=== PATIENT | male | born 1960 | race Caucasian/White ===

== ENCOUNTER 2016-11-27 06:44 | Observation (INO) | payer BC ==
[~2016-11-27] VITALS: Ht 175.3 cm; Wt 75.7 kg
[2016-11-27] VITALS (13 sets, daily range): BP systolic 110–142; BP diastolic 59–89
[~2016-11-27 06:44] MED LIST: EFFEXOR PO; EZET1TAB43 PO; LEVO500T69 PO; MTF500T PO; [UNRECOGNIZED DRUG - OTHER]
[2016-11-27] MEDS ORDERED: RX-NITROGLYCERIN 0.4 MG TAB BTL 25'S SL ONE (06:49)
--- OUTSIDE RECORDS SUMMARY | 2016-11-27 06:52 | XMS REPORT | Clinical Summary ---
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 HYPERCHOLESTEROLEMIA 272.0 Active Rhonda Jj PURE HYPERCHOLESTEROLEMIA MACULAR DEGENERATION, 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 Rhonda Jj MACULAR DEGENERATION (SENILE) OF RETINA, UNSPECIFIED CORONARY ARTERY DISEASE 414.00 Active Rhonda Jj 12/06/04 bypass DEPRESSION 311 Active Rhonda Jj DEPRESSIVE DISORDER, NOT ELSEWHERE CLASSIFIED VITAMIN B12 DEFICIENCY 266.2 Active Rhonda Jj OTHER B-COMPLEX DEFICIENCIES DIABETES MELLITUS, NONINSULIN DEPENDENT (NIDDM) 250.02 Active Rhonda Jj DIABETES MELLITUS WITHOUT MENTION OF COMPLICATION, TYPE II OR UNSPECIFIED TYPE, UNCONTROLLED VITAMIN D DEFICIENCY 268.9 Active Rhonda Jj TACHYCARDIA 785.0 Active Rhonda Jj UNSPECIFIED TACHYCARDIA HEALTH SCREENING V70.0 Active Rhonda Jj ROUTINE GENERAL MEDICAL EXAMINATION AT [facility] Medication List Medication Instructions Start Date Stop Date Generic Name NDC Status Provider Patient Instruction ECOTRIN 325 MG TBEC 1 PO QD (Dr. Ramirez) ASPIRIN 17013130321 Active Ann Meier VYTORIN 10-20 MG TABS 1 po daily EZETIMIBE-SIMVASTATIN 37183702213 Active Rhonda Jj EFFEXOR XR 150 MG CP24 1 PO daily VENLAFAXINE HCL 49776891393 Active Rhonda Jj XANAX 0.25 MG TABS 1 PO Q6hrs prn ALPRAZOLAM 93743784928 Active Rhonda Jj GLUCOPHAGE XR 500 MG TB24 2 PO daily METFORMIN HCL 98666153585 Active Rhonda Jj BACTROBAN/KENALOG/LIDOCAINE apply BID to affected areas BACTROBAN/KENALOG/LIDOCAINE Active Betty Mo VITAMIN D (ERGOCALCIFEROL) 82271 UNIT CAPS 1 PO Weekly ERGOCALCIFEROL 19528505220 Active Rhonda Jj GLYBURIDE 1.25 MG TABS 1 PO daily GLYBURIDE 62264616219 Active Rhonda Jj VITAMIN B-12 1000 MCG TABS 1 PO daily CYANOCOBALAMIN 79085625628 Active Rhonda Jj JANUVIA 100 MG TABS 1 PO daily SITAGLIPTIN PHOSPHATE 81893111830 Active Rhonda Jj Vital Signs Date Name Value Unit Range Description blood pressure, diastolic 80 mm[Hg] BP vieira blood pressure, systolic 130 mm[Hg] BP sys pulse rate E&M 120 /min Heart rate respiratory rate E&M 14 /min Resp rate temperature E&M 98.6 [degF] Body temperature weight E&M 198 [lb_av] Weight Measured blood pressure, diastolic 80 mm[Hg] BP vieira blood pressure, systolic 130 mm[Hg] BP sys pulse rate E&M 120 /min Heart rate respiratory rate E&M 14 /min Resp rate temperature E&M 98.6 [degF] Body temperature weight E&M 183 [lb_av] Weight Measured Diagnostic Results Date Name Value Unit Range Description Clinical Lists Update: CBC,CMP,Chol,Trig,HgA1c - Chemistry Estimated Glomerular Filtration Rate (calc) 115 mL/min/1.73m2 albumin, serum 4.4 g/dL alkaline phosphatase, serum 78 U/L urea nitrogen, blood 15 mg/dL calcium, serum 9.2 mg/dL chloride, serum 105 mmol/L cholesterol, serum 149 mg/dL carbon dioxide, venous blood 25.0 mmol/L creatinine, serum 0.8 mg/dL hemoglobin A1C, blood, as % of total hemoglobin 8.1 % potassium, serum 4.3 mmol/L protein, total, serum 6.9 g/dL aspartate aminotransferase (SGOT), serum 18 U/L alanine aminotransferase (SGPT), serum 33 U/L bilirubin, serum, total 0.7 mg/dL triglyceride, serum, fasting 164 mg/dL sodium, serum 138 mmol/L anion gap, serum 12 glucose, plasma fasting 159 mg/dL Clinical Lists Update: CBC,CMP,Chol,Trig,HgA1c - Hematology mean corpuscular volume, RBC 87 fL hemoglobin, blood 14.3 g/dL platelet count 162 10*3/mm3 red blood cell distribution width 14.4 % erythrocyte (RBC) count 4.98 10*6/mm3 leukocyte count, blood 6.4 10*3/mm3 hematocrit, blood 44 % Clinical Lists Update: CMP,FLP,TSH - Chemistry potassium, serum 3.9 mmol/L protein, total, serum 7.1 g/dL urea nitrogen, blood 14 mg/dL aspartate aminotransferase (SGOT), serum 15 U/L alanine aminotransferase (SGPT), serum 46 U/L calcium, serum 9.0 mg/dL bilirubin, serum, total 0.4 mg/dL triglyceride, serum, fasting 219 mg/dL chloride, serum 101 mmol/L sodium, serum 133 mmol/L very low density lipoproteins 44 mg/dL cholesterol, serum 139 mg/dL glucose, plasma fasting 217 mg/dL carbon dioxide, venous blood 26 mmol/L albumin, serum 3.9 g/dL creatinine, serum 0.8 mg/dL HDL cholesterol, serum 30 mg/dL thyroid stimulating hormone, serum 0.72 u[iU]/mL Estimated Glomerular Filtration Rate (calc) >60 mL/min/1.73m2 alkaline phosphatase, serum 124 U/L LDL cholesterol, serum 65 mg/dL Clinical Lists Update: HgA1c - Chemistry hemoglobin A1C, blood, as % of total hemoglobin 8.4 %
[2016-11-27] MEDS ORDERED: D50KC (06:53)
[2016-11-27] MEDS ORDERED: METF500T8 (06:53)
[2016-11-27] MEDS ORDERED: VENL150C98 PO (06:53)
[2016-11-27] MEDS ORDERED: CYAN10007 (06:53)
[2016-11-27] MEDS ORDERED: KETOROLAC 30 MG/ML VIAL IVP ONE (07:00)
--- NOTE | 2016-11-27 07:07 | ED Chest Pain ---
General Chief Complaint: Chest Pain Stated Complaint: CHEST PAIN Nursing Triage Note: c/o chest pain since saturday with nausea and SOA. Pain radiates to L arm, neck and L jaw. Patient reports he was at work this morning noticed that the pain was worse with lifting and was getting winded easily. Patient reports he took a 325mg aspirin, [employer]. Nursing Sepsis Screen: No Definite Risk Source: patient Exam Limitations: no limitations History of Present Illness Time seen by provider: 06:49 Initial Comments This 55-year-old gentleman presents to the emergency room with pain across the central chest described as a tight pulling and sometimes burning sensation. It is better with sleep and rest and worse with exertion. He presents to the emergency room on the third day of this pain because of worsening symptoms while at work this morning. 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 He is specifically states the pulling sensation in his chest is worse when lifting glass at work. He has a showed associated shortness of air and nausea. Pain sometimes radiates to the right lower chest, left arm, and base of neck. He also sometimes has numbness in the left face. He took aspirin 325 mg this morning. He rates his pain as 8/10. The pain is worsened with palpation. He has a history of CABG 12 years ago. His last stress test at this facility was in 2010 and showed no significant ischemia. Ejection fraction was normal. Allergies and Home Medications Allergies Coded Allergies: No Known Drug Allergies (Unverified , 10/16/11) Home Medications Cyanocobalamin (Vitamin B-12) 1,000 Mcg Tablet.er #90 (Reported) Ergocalciferol (Vitamin D2) 50,000 Unit Capsule #12 (Reported) Metformin HCl 500 Mg Tab.er.24h #180 (Reported) Venlafaxine HCl 150 Mg Cap.er.24h #90 (Reported) Review of Systems Constitutional: no symptoms reported EENTM: No Symptoms Reported Respiratory: See HPI Cardiovascular: See HPI Gastrointestinal: See HPI Genitourinary: No Symptoms Reported Musculoskeletal: see HPI Skin: no symptoms reported Psychiatric/Neurological: See HPI Endocrine: No Symptoms Reported Past Hsapkff-Huovlc-Kuaytl Hx Patient Social History Alcohol Use: Denies Use Recreational Drug Use: No Smoking Status: Never a Smoker Recent Foreign Travel: No Contact w/Someone Who Travel: No Recent Infectious Disease Expo: No Recent Hopitalizations: Yes Physical Abuse Screen: No Sexual Abuse: No Surgeries HX Surgeries: Yes Surgeries: CABG Respiratory Hx Respiratory Disorders: No Cardiovascular Hx Cardiac Disorders: Yes (CODE BLUE cardiac arrest) Cardiac Disorders: Coronary Artery Disease Neurological Hx Neurological Disorders: No Reproductive System Hx Reproductive Disorders: No Genitourinary Hx Genitourinary Disorders: No Gastrointestinal Hx Gastrointestinal Disorders: No Musculoskeletal Hx Musculoskeletal Disorders: No Endocrine Hx Endocrine Disorders: Yes Endocrine Disorders: Diabetes, Non-Insulin dep HEENT HX ENT Disorders: No Psychosocial Hx Psychiatric Problems: No Blood Transfusions Hx Blood Disorders: No Physical Exam Vital Signs Vital Sign - Last 12Hours 11/27/16 11/27/16 06:49 07:04 Temp 98.4 Pulse 92 Resp 11 B/P 148/90 Pulse Ox 97 O2 Delivery Room Air O2 Flow Rate 2 Capillary Refill : Less Than 3 Seconds General Appearance: No Apparent Distress WD/WN HEENT: PERRL/EOMI Normal ENT Inspection Neck: Normal Inspection Respiratory: Lungs Clear Normal Breath Sounds No Accessory Muscle Use No Respiratory Distress Other (anterior chest wall tender to palpation) Cardiovascular: Regular Rate, Rhythm No Edema No Murmur Normal Peripheral Pulses Gastrointestinal: Normal Bowel Sounds Non Tender Soft Extremity: Normal Inspection Non Tender No Calf Tenderness No Pedal Edema Other (negative Panfilo) Neurologic/Psychiatric: Alert Oriented x3 No Motor/Sensory Deficits Normal Mood/Affect Skin: Normal Color Warm/Dry Progress/Results/Core Measures Results/Orders Lab Results Laboratory Tests Test 11/27/16 06:50 Range/Units Activated Partial Thromboplast Time 30 24-35 SEC Alanine Aminotransferase (ALT/SGPT) 29 0-55 U/L Albumin 4.2 3.2-4.5 G/DL Alkaline Phosphatase 102 40-136 U/L Anion Gap 13 5-14 MMOL/L Aspartate Amino Transf (AST/SGOT) 21 5-34 U/L BUN/Creatinine Ratio 14 Basophils # (Auto) 0.0 0.0-0.1 10^3/uL Basophils (%) (Auto) 0 0-10 % Blood Urea Nitrogen 14 7-18 MG/DL Calcium Level 8.8 8.5-10.1 MG/DL Carbon Dioxide Level 20 L 21-32 MMOL/L Chloride Level 101 98-107 MMOL/L Creatinine 1.02 0.60-1.30 MG/DL Eosinophils # (Auto) 0.1 0.0-0.3 10^3/uL Eosinophils (%) (Auto) 1 0-10 % Estimat Glomerular Filtration Rate > 60 Glucose Level 355 H 70-105 MG/DL Hematocrit 41 40-54 % Hemoglobin 14.5 13.3-17.7 G/DL INR Comment 1.0 0.8-1.4 Lymphocytes # (Auto) 0.8 L 1.0-4.0 X 10^3 Lymphocytes (%) (Auto) 14 12-44 % Magnesium Level 1.9 1.8-2.4 MG/DL Mean Corpuscular Hemoglobin 29 25-34 PG Mean Corpuscular Hemoglobin Concent 35 32-36 G/DL Mean Corpuscular Volume 81 80-99 FL Mean Platelet Volume 11.0 H 7.4-10.4 FL Monocytes # (Auto) 0.5 0.0-1.0 X 10^3 Monocytes (%) (Auto) 8 0-12 % Myoglobin 33.6 10.0-92.0 NG/ML Neutrophils # (Auto) 4.5 1.8-7.8 X 10^3 Neutrophils (%) (Auto) 77 H 42-75 % Platelet Count 134 130-400 10^3/uL Potassium Level 4.3 3.6-5.0 MMOL/L Prothrombin Time 12.8 12.2-14.7 SEC Red Blood Count 5.07 4.35-5.85 10^6/uL Red Cell Distribution Width 14.3 10.0-14.5 % Sodium Level 134 L 135-145 MMOL/L Total Bilirubin 0.9 0.1-1.0 MG/DL Total Protein 6.9 6.4-8.2 G/DL Troponin I < 0.30 <0.30 NG/ML White Blood Count 5.8 4.3-11.0 10^3/uL My Orders Orders-STEFAN WILSON MD Cbc With Automated Diff (11/27/16 06:57) Magnesium (11/27/16 06:57) Ekg Tracing (11/27/16 06:57) Cardiac Profile 1 (11/27/16 06:57) Comprehensive Metabolic Panel (11/27/16 06:57) Myoglobin Serum (11/27/16 06:57) Protime With Inr (11/27/16 06:57) Partial Thromboplastin Time (11/27/16 06:57) O2 (11/27/16 06:57) Monitor-Rhythm Ecg Trace Only (11/27/16 06:57) Lipid Panel (11/28/16 06:00) Saline Lock/Iv-Start (11/27/16 06:57) Ketorolac Injection (Toradol Injection) (11/27/16 07:00) Rx-Nitroglycerin Sl Tabs (Rx-Nitrostat S (11/27/16 06:49) Chest Pa/Lat (2 View) (11/27/16 06:58) Medications Given in ED Current Medications Medications Dose Ordered Sig/Bernie Route Start Time Stop Time Status Last Admin Dose Admin Ketorolac Tromethamine 30 mg ONCE ONCE IVP 11/27/16 07:00 11/27/16 07:01 DC 11/27/16 07:01 30 MG Vital Signs/I&O Vital Sign - Last 12Hours 11/27/16 11/27/16 11/27/16 06:49 06:49 07:04 Temp 98.4 Pulse 92 Resp 11 B/P 148/90 Pulse Ox 97 95 O2 Delivery Room Air Nasal Cannula O2 Flow Rate 2 Blood Pressure Mean: 109 Progress Note #1: Time: 07:09 Progress Note Patient take aspirin 325 mg at home. Pain is presently 8 out of 10. The characteristics of pain are mixed, typical and atypical. Pain was reproducible or intensified with palpation. Toradol was ordered for treatment of the pain. If this does not improve pain, nitroglycerin will be administered. Pain is subacute and has been present for greater than 48 hours. Progress Note #2: Time: 07:45 Progress Note Pain was reduced to 5 out of 10 from 8 out of 10 after Toradol. Patient actually was comfortable enough to fall sleep in the exam room. He notes the pain is exacerbated even with movements in the bed with minimal exertion. Cardiopulmonary workup is essentially negative in the ER. Patient's characteristics of chest pain are mixed. He does have increased pain and shortness of breath with exertion as well as some nausea. However, pain is also reproducible with palpation and worsens with even just minimal movement of position changes in bed. It improved with Toradol, and my impression is this pain is likely musculoskeletal in nature. However, he does have significant risk factors including known coronary artery disease and diabetes. I will contact cardiology to discuss further. ECG Initial ECG Impression Date: Nov 27, 2016 Initial ECG Impression Time: 06:52 Initial ECG Rate: 99 Initial ECG Rhythm: Normal Sinus Initial ECG Intervals: Normal Initial ECG Impression: Normal Comment Normal sinus rhythm with no ST elevation or depression. No abnormal intervals or axis deviation. Diagnostic Imaging Diagonstic Imaging: Xray Plain Films/CT/US/NM/MRI: chest Departure Communication Time/Spoke to Admitting Phy: 07:[address] Davison is agreeable to admission for further cardiac evaluation as recommended by Dr. Patel Time/Spoke to Consulting Physi: 07:45 Communication/Consulting Case was reviewed with Dr. Patel to would like the patient admitted for observation, especially since he has additional risk factor of diabetes and has not established with cardiology in the outpatient setting. Patient is agreeable. Impression Impression: Primary Impression: Chest pain Qualified Code: R07.9 - Chest pain, unspecified Disposition: 09 ADMITTED INPATIENT Condition: Improved Decision to Admit Reason: Admit from ER (General) Decision to Admit/Date: Nov 27, 2016 Time/Decision to Admit Time: 07:45 Departure-Patient Inst. Referrals: DARIEL MENDOZA DO (PCP/Family) Primary Care Physician STEFAN WILSON MD Nov 27, 2016 07:07
[2016-11-27 07:13] LABS: MEAN CORPUSCULAR HEMOGLOBIN 29 PG (25-34); MEAN CORPUSCULAR HGB CONC 35 G/DL (32-36); MEAN CORPUSCULAR VOLUME 81 FL (80-99); PROTHROMBIN TIME PATIENT 12.8 SEC (12.2-14.7); RED BLOOD COUNT 5.07 10^6/uL (4.35-5.85); WHITE BLOOD COUNT 5.8 10^3/uL (4.3-11.0)
[2016-11-27 07:14] LABS: BASOPHILS % (AUTO) 0 % (0-10); EOSINOPHILS # (AUTO) 0.1 10^3/uL (0.0-0.3); EOSINOPHILS % (AUTO) 1 % (0-10); LYMPHOCYTES # (AUTO) 0.8 X 10^3 (1.0-4.0); LYMPHOCYTES % (AUTO) 14 % (12-44); MONOCYTES # (AUTO) 0.5 X 10^3 (0.0-1.0); MONOCYTES % (AUTO) 8 % (0-12); NEUTROPHILS # (AUTO) 4.5 X 10^3 (1.8-7.8); NEUTROPHILS % (AUTO) 77 % (42-75); PLATELET COUNT 134 10^3/uL (130-400); RED CELL DISTRIBUTION WIDTH 14.3 % (10.0-14.5)
[2016-11-27 07:28] LABS: ALANINE AMINOTRANSFERASE 29 U/L (0-55); ALBUMIN 4.2 G/DL (3.2-4.5); ANION GAP 13 MMOL/L (5-14); ASPARTATE AMINO TRANSFERASE 21 U/L (5-34); BILIRUBIN,TOTAL 0.9 MG/DL (0.1-1.0); BLOOD UREA NITROGEN 14 MG/DL (7-18); BUN/CREATININE RATIO 14; CALCIUM 8.8 MG/DL (8.5-10.1); CARBON DIOXIDE 20 MMOL/L (21-32); CHLORIDE 101 MMOL/L (98-107); CREATININE SERUM 1.02 MG/DL (0.60-1.30); GFR ESTIMATED > 60; GLUCOSE 355 MG/DL (70-105); MAGNESIUM 1.9 MG/DL (1.8-2.4); POTASSIUM 4.3 MMOL/L (3.6-5.0); SODIUM 134 MMOL/L (135-145); TOTAL PROTEIN 6.9 G/DL (6.4-8.2)
[2016-11-27 07:34] LABS: MYOGLOBIN SERUM 33.6 NG/ML (10.0-92.0)
--- NOTE | 2016-11-27 08:20 | Diagnostic Imaging Report ---
PA and lateral views of the chest. INDICATION: Chest pain. FINDINGS: The lungs are clear. The heart size is normal. No effusion or pneumothorax. The mediastinum and zora appear unremarkable. Sternotomy wires are seen. IMPRESSION: Unremarkable exam. Dictated by: Dictated on workstation # [id number]
[2016-11-27] MEDS ORDERED: ASPIRIN E.C. 325 MG (ECOTRIN) TABLET PO SCH (09:00)
--- NOTE | 2016-11-27 09:42 | Consultation-Cardiology ---
HPI-Cardiology Cardiology Consultation: Date of Consultation 11/27/16 Date of Admission Attending Physician Garrett Davison MD Admitting Physician Rhonda Jj DO Consulting Physician Fredy PATEL MD HPI: Chief Complaint: Chest pain This is a 55-year-old gentleman with history of diabetes and CABG 12 years ago in [place]. No cardiology follow-up ever since. He presents with chest pain since Saturday. Initially off and on but then constant. Feels better if he lies down. Exertion makes it worse. Occasionally radiates to the left shoulder. Also associated left facial numbness. Patient denies any shortness of breath, syncope, near-syncope, palpitations. Chest pain quality is sharp. Review of Systems-Cardiology Review of Systems Constitutional: No As described under HPI, No no symptoms reported, No chills, No fever, No lightheadedness, No malaise, No tiredness, No weight loss, No weight gain, No other Eyes: No As described under HPI, No no symptoms reported, No blindness, No blurred vision, No contact lenses, No drainage, No decreased acuity, No foreign body sensation, No glasses, No inflammation, No pain, No photophobia, No previous injury, No shadows, No tunnel vision, No other, No vision change Ears/Nose/Throat: No As described under HPI, No no symptoms reported, No chronic hearing loss, No epistaxis, No ear discharge, No ear pain, No loose teeth, No mouth pain, No mouth swelling, No nasal drainage, No nose pain, No recent hearing loss, No throat pain, No throat swelling, No ulcerations, No other Respiratory: No no symptoms reported, No As described under HPI, No cough, No orthopnea, No shortness of breath, No SOB with excertion, No SOB at rest, No stridor, No wheezing, No other Cardiovascular: chest pain Gastrointestinal: No no symptoms reported, No As described under HPI, No abdomen distended, No abdominal pain, No blood streaked bowels, No constipation , No diarrhea, No difficulty swallowing, No nausea, No poor appetite, No poor fluid intake, No rectal bleeding, No vomiting, No other, No nausea/vomiting/ diarrhea, No stool coloration changes Genitourinary: No no symptoms reported, No As described under HPI, No burning, No dysuria, No discharge, No frequency, No flank pain, No hematuria, No incontinence, No pain, No urgency, No other, No urine frequency changes, No urine coloration changes Musculoskeletal: No no symptoms reported, No As describe under HPI, No back pain, No gout, No joint pain, No joint swelling, No muscle pain, No muscle stiffness, No neck pain, No other Skin: No no symptoms reported, No As described under HPI, No change in color, No change in hair/nails, No dryness, No lesions, No lumps, No rash, No other, No skin related problems, No ulcerations, No rash on exposed areas, No ulcerations on exposed areas Psychiatric/Neurological: other (Left facial numbness) Hematologic: No no symptoms reported, No As described under HPI, No anemia, No blood clots, No easy bleeding, No easy bruising, No swollen glands, No other, No bleeding abnormalities PHH-Baygzh-Ylxkme Hx Patient Social History Alcohol Use: Denies Use Recreational Drug Use: No Smoking Status: Never a Smoker Recent Foreign Travel: No Recent Infectious Disease Expo: No Hospitalization with Isolation: Denies Physical Abuse Screen: No Sexual Abuse: No Past Medical History PMH As described under Assessment. Allergies and Home Medications Allergies Coded Allergies: No Known Drug Allergies (Unverified , 10/16/11) Home Medications Cyanocobalamin (Vitamin B-12) 1,000 Mcg Tablet.er #90 (Reported) Ergocalciferol (Vitamin D2) 50,000 Unit Capsule #12 (Reported) Metformin HCl 500 Mg Tab.er.24h #180 (Reported) Venlafaxine HCl 150 Mg Cap.er.24h #90 (Reported) Physical Exam-Cardiology Physical Exam Vital Signs/I&O Vital Sign - Last 12Hours 11/27/16 11/27/16 11/27/16 11/27/16 06:49 06:49 07:04 08:35 Temp 98.4 Pulse 92 90 Resp 11 24 B/P 148/90 Pulse Ox 97 95 96 O2 Delivery Room Air Nasal Cannula Nasal Cannula O2 Flow Rate 2 2 11/27/16 11/27/16 11/27/16 11/27/16 09:00 09:00 09:08 09:15 Temp 98.8 Pulse 91 86 90 Resp 18 16 B/P 133/81 130/85 Pulse Ox 98 97 O2 Delivery Nasal Cannula Nasal Cannula Nasal Cannula O2 Flow Rate 2.00 2.00 2.00 11/27/16 11/27/16 11/27/16 11/27/16 09:30 09:45 10:00 10:30 Pulse 92 94 98 98 Resp 18 20 14 16 B/P 130/85 126/82 132/86 133/86 Pulse Ox 97 97 96 96 O2 Delivery Nasal Cannula Nasal Cannula Nasal Cannula Nasal Cannula O2 Flow Rate 2.00 2.00 2.00 2.00 Capillary Refill : Less Than 3 Seconds Constitutional: No appears stated age, No AAO x 3, No apparent distress, No PERRL, No well-developed, No well-nourished, No other HEENT: No PERRL, No normal ENT inspection, No TMs normal, No pharynx normal, No scleral icterus (R), No scleral icterus (L), No pale conjunctivae (R), No pale conjunctivae (L), No photophobia, No TM abnormal (R), No TM abnormal (L), No pharyngeal erythema, No tonsillar exudate, No other, No discharge, No EOMI, No hearing is well preserved, No hard of hearing, No oral hygience is good, No ulceration, No xanthelasmas are seen Neck: No non-tender, No full range of motion, No supple, No normal inspection, No carotid bruit, No limited range of motion, No lymphadenopathy (R), No lymphadenopathy (L), No tender lateral, No tender midline, No thyromegaly, No other, No carotid pulses are 2 + bilaterally, No with good upstrokes Respiratory: No accessory muscle use, No respiratory distress, No chest tender , No chest expansion is symmetric, No chest is bilaterally symmetric, No lungs clear to percussion, No lungs clear to auscultation, No crackles, No rhonchi, No rales, No stridor, No wheezing, No pleural rub, No other Cardiovascular: No regular rate-rhythm, No irregularly irregular, No extra beats, No parasternal heave is noted, No JVD, No edema, No bradycardia, No tachycardia, No point of maximal impulse, No cardiac thrills are palpable, No S1 and S2, No gallop/S3, No gallop/S4, No diastolic murmur, No systolic murmur, No friction rub, No click, other (Chest tenderness on examination) Gastrointestinal: No tender, No soft, No round, No distended, No pulsatile mass , No organomegaly, No guarding, No rebound, No tenderness, No hernia, No mass, No audible bowel sounds, No abnormal bowel sounds, No abdominal bruits, No spleenomegaly, No other Rectal: deferred Extremities: No normal range of motion, No non-tender, No normal inspection, No pedal edema, No calf tenderness, No normal capillary refill, No pelvis stable , No calf tenderness, No inflammation, No pedal edema, No slow capillary refill , No swelling, No other, No abrasion, No clubbing, No cyanosis, No ecchymosis, No laceration, No no lower extremity edema bilateral, No significant edema, No tenderness, No wound Neurologic/Psychiatric: No ceramic coater machine II-XII nml as tested, No no motor/sensory deficits, No alert, No normal mood/affect, No oriented x 3, No abnormal cerebellar tests, No abnormal ceramic coater machine II-XII, No abnormal gait, No aphasia, No EOM palsy, No facial droop, No motor weakness, No sensory deficit, No depressed affect, No disoriented x 3, No other, No grossly intact, No power is 5/5 both on sides Skin: No normal color, No warm/dry, No cyanosis, No cool, No diaphoresis, No damp, No ecchymosis, No jaundice, No mottled, No pallor, No rash, No tattoos/ piercings, No ulcerations, No rash on exposed areas, No ulcerations on exposed areas, No other Data Review Labs Laboratory Tests 11/27/16 06:50: Activated Partial Thromboplast Time 30, Alanine Aminotransferase (ALT/SGPT) 29, Albumin 4.2, Alkaline Phosphatase 102, Anion Gap 13, Aspartate Amino Transf (AST /SGOT) 21, BUN/Creatinine Ratio 14, Basophils # (Auto) 0.0, Basophils (%) (Auto ) 0, Blood Urea Nitrogen 14, Calcium Level 8.8, Carbon Dioxide Level 20L, Chloride Level 101, Creatinine 1.02, Eosinophils # (Auto) 0.1, Eosinophils (%) ( Auto) 1, Estimat Glomerular Filtration Rate > 60, Glucose Level 355H, Hematocrit 41, Hemoglobin 14.5, INR Comment 1.0, Lymphocytes # (Auto) 0.8L, Lymphocytes (%) (Auto) 14, Magnesium Level 1.9, Mean Corpuscular Hemoglobin 29, Mean Corpuscular Hemoglobin Concent 35, Mean Corpuscular Volume 81, Mean Platelet Volume 11.0H, Monocytes # (Auto) 0.5, Monocytes (%) (Auto) 8, Myoglobin 33.6, Neutrophils # (Auto) 4.5, Neutrophils (%) (Auto) 77H, Platelet Count 134, Potassium Level 4.3, Prothrombin Time 12.8, Red Blood Count 5.07, Red Cell Distribution Width 14.3, Sodium Level 134L, Total Bilirubin 0.9, Total Protein 6.9, Troponin I < 0.30, White Blood Count 5.8 ECG Impression ECG Initial ECG Rhythm: Normal Sinus Initial ECG Impression: Normal A/P-Cardiology Assessment/Admission Diagnosis 1. Chest pain, 2. Coronary artery disease/CABG, 3. Diabetes Plan This is a 55-year-old gentleman with previous history of CABG 12 years ago in [place]. He also has history of diabetes. According to the patient he had NC and syncope, therefore CABG was performed. Details not available at this point in time. However he has not followed with cardiology since then. According to the family he has only been taking aspirin and no statin. His initial EKG and troponin are negative. Second set of troponin will be done shortly. If troponin is negative then we will proceed with pharmacological nuclear stress test in the morning. He will continue aspirin, we will give Plavix 300 mg now and Lipitor 40 mg now. If pharmacological nuclear stress testing is abnormal, we will proceed with coronary angiography. I will defer management of diabetes to the primary team. He also complains of vague symptoms of left facial numbness, I have requested the RN to inform the primary team for further workup. Echocardiogram will also be requested. Thank you for your consultation. Please call me if you have any questions. Stephania Patel MD, FACP, FACC, FSCAI, FHRS, CCDS Interventional Cardiology Cardiac Electrophysiology Vascular Medicine and Endovascular Interventions Clinical Quality Measures AMI/AHF: ASA po Prior to arrival: Yes (325mg Aspirin) Fredy PATEL MD Nov 27, 2016 9:42 am
--- NOTE | 2016-11-27 09:48 | History & Physical-Hospitalist ---
HPI History of Present Illness: HPI/Chief Complaint CC: Chest pain HPI: This is a 55-year-old white male clinic patient of mine for the past 12 years with history of diabetes maintained on metformin and hyperlipidemia along with CAD previous bypass surgery after he was resuscitated at home years ago undergoing one-vessel bypass the presents to the emergency room with complaints of chest pain since Saturday. He reported to work yesterday still had chest pain that worsened throughout the day got up to go to work today and only lasted for about an hour had to come home and went to bed for the the chest pain. I have discussed multiple times to reestablish with cardiology and that was in the process but then he canceled his appointment but at this current time Dr. Patel has been consulted has seen the patient and will direct testing and therapy from here. Source: patient, family Exam Limitations: no limitations Date Seen 11/27/16 Attending Physician Garrett Davison MD PCP Rhonda Jj DO Referring Physician Date of Admission Nov 27, 2016 at 08:21 Home Medications & Allergies Home Medications Reviewed patient Home Medication Reconciliation Form Allergies Coded Allergies: No Known Drug Allergies (Unverified , 10/16/11) Past [id number]-[id number] Hx Patient Social History Marrital Status: Employed/Student: employed ([employer] 20+ yrs) Alcohol Use: Denies Use Recreational Drug Use: No Smoking Status: Never a Smoker Physical Abuse Screen: No Sexual Abuse: No Recent Foreign Travel: No Contact w/other who traveled: No Recent Hopitalizations: Yes Recent Infectious Disease Expo: No Surgeries HX Surgeries: Yes Surgeries: CABG Respiratory Hx Respiratory Disorders: No Cardiovascular Hx Cardiovascular Disorders: Yes (CODE BLUE cardiac arrest) Cardiac Disorders: Coronary Artery Disease, High Cholesterol, Hypertension Neurological Hx Neurological Disorders: Yes Neurological Disorders: Neuropathy Reproductive System Hx Reproductive Disorders: No Genitourinary Hx Genitourinary Disorders: No Gastrointestinal Hx Gastrointestinal Disorders: No Musculoskeletal Hx Musculoskeletal Disorders: No Endocrine Hx Endocrine Disorders: Yes Endocrine Disorders: Diabetes, Non-Insulin dep HEENT HX ENT Disorders: No Psychosocial Hx Psychiatric Problems: No Blood Transfusions Hx Blood Disorders: No Review of Systems Constitutional: see HPI dizziness malaise weakness EENTM: no symptoms reported Respiratory: short of breath Cardiovascular: chest pain Gastrointestinal: no symptoms reported Genitourinary: no symptoms reported Musculoskeletal: no symptoms reported Skin: no symptoms reported Psychiatric/Neurological: Anxiety Depressed Emotional Problems All Other Systems Reviewed Negative Unless Noted: Yes Physical Exam Physical Exam Vital Signs Vital Sign - Last 12Hours 11/27/16 11/27/16 06:49 07:04 Temp 98.4 Pulse 92 Resp 11 B/P 148/90 Pulse Ox 97 O2 Delivery Room Air O2 Flow Rate 2 Capillary Refill : Less Than 3 Seconds General Appearance: No Apparent Distress WD/WN Chronically ill Thin Eyes: Bilateral Eye Normal Inspection, Bilateral Eye PERRL HEENT: PERRL/EOMI Normal ENT Inspection Pharynx Normal Neck: Full Range of Motion Normal Inspection Non Tender Supple Carotid Bruit Respiratory: Chest Non Tender Lungs Clear Normal Breath Sounds No Accessory Muscle Use No Respiratory Distress Cardiovascular: Regular Rate, Rhythm No Edema No Gallop No JVD No Murmur Normal Peripheral Pulses Gastrointestinal: Normal Bowel Sounds No Organomegaly No Pulsatile Mass Non Tender Soft Back: Normal Inspection No CVA Tenderness No Vertebral Tenderness Extremity: Normal Capillary Refill Normal Inspection Normal Range of Motion Non Tender No Calf Tenderness No Pedal Edema Neurologic/Psychiatric: Alert Oriented x3 No Motor/Sensory Deficits Normal Mood/Affect Skin: Normal Color Warm/Dry Lymphatic: No Adenopathy Results Results/Procedures Lab Laboratory Tests 11/27/16 06:50 Assessment/Plan Admission Diagnosis Assessment: Chest pain and noncompliant cardiac patient previous bypass surgery Diabetes Hypertension Hyperlipidemia Anxiety OCD Anger issues Assessment and Plan Appreciate cardiology evaluation and management Monitor closely Clinical Quality Measures AMI/AHF: ASA po Prior to arrival: Yes (325mg Aspirin) RHONDA JJ DO Nov 27, 2016 09:48
[2016-11-27] MEDS ORDERED: CLOPIDOGREL 300 MG (PLAVIX) TABLET PO NR (11:00)
[2016-11-27] MEDS: ATORVASTATIN 40 MG (LIPITOR) TABLET PO SCH ×2 (11:29→19:32)
[2016-11-27] MEDS ORDERED: FLU TRIvalent (5 YOA+) 2016-17 (AFLURIA) 0.5 ML IM ONE (12:00)
[2016-11-27] MEDS ORDERED: ASPI325T32 PO (12:55)
[2016-11-27] MEDS: fentaNYL INJECTION 100 MCG/2 ML AMP IVP PRN ×2 (16:13→20:22)
[2016-11-27] MEDS ORDERED: ACETAMINOPHEN 325 MG TABLET/CAPLET (TYLENOL) PO PRN (16:45)
[2016-11-27] MEDS ORDERED: IBUPROFEN 600 MG (MOTRIN) TAB PO PRN (16:45)
[2016-11-28] MEDS: fentaNYL INJECTION 100 MCG/2 ML AMP IVP PRN (00:16)
[2016-11-28 04:00] VITALS: BP 110/67
[2016-11-28 05:05] LABS: CHOLESTEROL 160 MG/DL (< 200); DIRECT LDL 104 MG/DL (1-129); TRIGLYCERIDES 177 MG/DL (<150); VLDL CHOLESTEROL 35 MG/DL (5-40)
[2016-11-28 08:50] VITALS: BP 118/74
[2016-11-28] MEDS ORDERED: CATHETER FLUSH 10 ML SYR IV PRN (09:00)
[2016-11-28] MEDS ORDERED: REGADENOSON 0.4 MG/5 ML SYR (LEXISCAN) IV ONE ×2 (09:56→10:15)
[2016-11-28 10:07] VITALS: BP 140/89
--- NOTE | 2016-11-28 10:36 | Cardiology Progress Note ---
Cardiology SOAP Progress Note Subjective: Mild chest pain Objective: I&O/Vital Signs Vital Sign - Last 12Hours 11/28/16 11/28/16 11/28/16 11/28/16 04:00 04:00 07:00 08:50 Temp 98.4 99.1 Pulse 64 97 97 Resp 18 16 B/P 110/67 118/74 Pulse Ox 96 95 O2 Delivery Room Air Room Air Room Air 11/28/16 11/28/16 11/28/16 10:07 12:11 13:00 Temp 99.7 Pulse 97 101 105 Resp 18 18 B/P 140/89 138/86 Pulse Ox 97 96 O2 Delivery Room Air Room Air Intake and Output 11/28/16 00:00 Intake Total 780 ml Output Total 800 ml Balance -20 ml Weight (Pounds): 167 Weight (Ounces): 0.0 Weight (Calculated Kilograms): [id number] Constitutional: No appears stated age, No AAO x 3, No apparent distress, No PERRL, No well-developed, No well-nourished, No other Respiratory: No accessory muscle use, No respiratory distress, No chest tender , No chest expansion is symmetric, No chest is bilaterally symmetric, No lungs clear to percussion, No lungs clear to auscultation, No crackles, No rhonchi, No rales, No stridor, No wheezing, No pleural rub, No other Cardiovascular: No regular rate-rhythm, No irregularly irregular, No extra beats, No parasternal heave is noted, No JVD, No edema, No bradycardia, No tachycardia, No point of maximal impulse, No cardiac thrills are palpable, No S1 and S2, No gallop/S3, No gallop/S4, No diastolic murmur, No systolic murmur, No friction rub, No click, other (Chest tenderness on examination) Gastrointestional: No tender, No soft, No round, No distended, No pulsatile mass, No organomegaly, No guarding, No rebound, No tenderness, No hernia, No mass, No audible bowel sounds, No abnormal bowel sounds, No abdominal bruits, No spleenomegaly, No other Extremities: No normal range of motion, No non-tender, No normal inspection, No pedal edema, No calf tenderness, No normal capillary refill, No pelvis stable , No calf tenderness, No inflammation, No pedal edema, No slow capillary refill , No swelling, No other, No abrasion, No clubbing, No cyanosis, No ecchymosis, No laceration, No no lower extremity edema bilateral, No significant edema, No tenderness, No wound Neurologic/Psychiatric: No office rep II-XII nml as tested, No no motor/sensory deficits, No alert, No normal mood/affect, No oriented x 3, No abnormal cerebellar tests, No abnormal office rep II-XII, No abnormal gait, No aphasia, No EOM palsy, No facial droop, No motor weakness, No sensory deficit, No depressed affect, No disoriented x 3, No other, No grossly intact, No power is 5/5 both on sides Skin: No normal color, No warm/dry, No cyanosis, No cool, No diaphoresis, No damp, No ecchymosis, No jaundice, No mottled, No pallor, No rash, No tattoos/ piercings, No ulcerations, No rash on exposed areas, No ulcerations on exposed areas, No other Results/Procedures: Labs Laboratory Tests 11/27/16 20:29: Glucometer 212H 11/28/16 04:00: Cholesterol Level 160, HDL Cholesterol 26L, LDL Cholesterol Direct 104, Triglycerides Level 177H, Troponin I < 0.30, VLDL Cholesterol 35 11/28/16 05:09: Glucometer 187H 11/28/16 11:32: Alanine Aminotransferase (ALT/SGPT) 27, Albumin 3.8, Alkaline Phosphatase 90, Anion Gap 12, Aspartate Amino Transf (AST/SGOT) 18, BUN/Creatinine Ratio 21, Basophils # (Auto) 0.0, Basophils (%) (Auto) 0, Blood Urea Nitrogen 16, Calcium Level 8.6, Carbon Dioxide Level 18L, Chloride Level 104, Creatinine 0.76, Eosinophils # (Auto) 0.0, Eosinophils (%) (Auto) 1, Estimat Glomerular Filtration Rate > 60, Glucose Level 218H, Hematocrit 41, Hemoglobin 14.5, Lymphocytes # (Auto) 0.8L, Lymphocytes (%) (Auto) 18, Mean Corpuscular Hemoglobin 29, Mean Corpuscular Hemoglobin Concent 35, Mean Corpuscular Volume 82, Mean Platelet Volume 10.9H, Monocytes # (Auto) 0.5, Monocytes (%) (Auto) 10 , Monoscreen NEGATIVE, Neutrophils # (Auto) 3.2, Neutrophils (%) (Auto) 71, Platelet Count 124L, Potassium Level 3.8, Red Blood Count 5.02, Red Cell Distribution Width 14.6H, Sodium Level 134L, Total Bilirubin 0.9, Total Protein 6.5, White Blood Count 4.5 Microbiology 11/28/16 Influenza Types A,B Antigen ([facility]) - Final, Complete A/P: Assessment/Dx: Chest pain, CABG, hypertension, hyperlipidemia Plan: Continue aspirin and statin. Echocardiogram does not show any significant abnormality. Nuclear stress test did not show any perfusion defect. Cardiology to sign off. He can follow-up with me as an outpatient. Contact info given to the patient. Thank you for your consultation. Please call me if you have any questions. Stephania Patel MD, FACP, FACC, FSCAI, FHRS, CCDS Interventional Cardiology Cardiac Electrophysiology Vascular Medicine and Endovascular Interventions Clinical Quality Measures AMI/AHF: ASA po Prior to arrival: Yes (325mg Aspirin) Fredy PATEL MD Nov 28, 2016 10:36 Clinical Quality Measures AMI/AHF: ASA po Prior to arrival: Yes (325mg Aspirin) Fredy PATEL MD Nov 28, 2016 10:36
[2016-11-28 11:45] LABS: BASOPHILS % (AUTO) 0 % (0-10); EOSINOPHILS % (AUTO) 1 % (0-10); LYMPHOCYTES # (AUTO) 0.8 X 10^3 (1.0-4.0); LYMPHOCYTES % (AUTO) 18 % (12-44); MEAN CORPUSCULAR HEMOGLOBIN 29 PG (25-34); MEAN CORPUSCULAR HGB CONC 35 G/DL (32-36); MEAN CORPUSCULAR VOLUME 82 FL (80-99); MEAN PLATELET VOLUME 10.9 FL (7.4-10.4); MONOCYTES # (AUTO) 0.5 X 10^3 (0.0-1.0); MONOCYTES % (AUTO) 10 % (0-12); NEUTROPHILS # (AUTO) 3.2 X 10^3 (1.8-7.8); NEUTROPHILS % (AUTO) 71 % (42-75); PLATELET COUNT 124 10^3/uL (130-400); RED BLOOD COUNT 5.02 10^6/uL (4.35-5.85); RED CELL DISTRIBUTION WIDTH 14.6 % (10.0-14.5); WHITE BLOOD COUNT 4.5 10^3/uL (4.3-11.0)
--- NOTE | 2016-11-28 11:50 | Progress Note-Hospitalist ---
Progress Note HPI/CC on Admission CC: Chest pain HPI: This is a 55-year-old white male clinic patient of mine for the past 12 years with history of diabetes maintained on metformin and hyperlipidemia along with CAD previous bypass surgery after he was resuscitated at home years ago undergoing one-vessel bypass the presents to the emergency room with complaints of chest pain since Saturday. He reported to work yesterday still had chest pain that worsened throughout the day got up to go to work today and only lasted for about an hour had to come home and went to bed for the the chest pain. I have discussed multiple times to reestablish with cardiology and that was in the process but then he canceled his appointment but at this current time Dr. Patel has been consulted has seen the patient and will direct testing and therapy from here. Progress Notes/Assess & Plan Date Seen 11/28/16 Admission Dx/Process Assessment: Chest pain and noncompliant cardiac patient previous bypass surgery Diabetes Hypertension Hyperlipidemia Anxiety OCD Anger issues Diagonsis/Assessment & Plan Patient just returned from stress test in awaiting those results Had an isolated fever last night with unknown source Patient feels otherwise fine and ready to eat but just very tired and decreased appetite Family concerned because this is just not typical for the patient but I explained to the patient that I may not have an answer today why this was happening but close follow-up would be shrestha I will see him in the clinic in 2 days at 415 p.m. and if anything worsened he was to return back to the hospital but I do not have a source of his issues at this current time and likely it is an acute viral illness causing exacerbation of the chronic chest pain he has had since sternotomy from bypass surgery 12 years ago. No fever currently, O x 3 RRR, CTAB no rales No edema Assessment: Chest pain and noncompliant cardiac patient previous bypass surgery Diabetes Hypertension Hyperlipidemia Anxiety OCD Anger issues w/non-compliance Isolated fever of unknown source now resolved Fatigue Plan: Appreciate cardiology evaluation and management Check labs including CBC, CMP, Flu and [place] Await EST results Mysterious events but stable and it appears that all testing is negative thus far and no alarming results DARIEL MENDOZA DO Nov 28, 2016 11:50
[2016-11-28 12:03] LABS: ALANINE AMINOTRANSFERASE 27 U/L (0-55); ALBUMIN 3.8 G/DL (3.2-4.5); ANION GAP 12 MMOL/L (5-14); ASPARTATE AMINO TRANSFERASE 18 U/L (5-34); BILIRUBIN,TOTAL 0.9 MG/DL (0.1-1.0); BLOOD UREA NITROGEN 16 MG/DL (7-18); BUN/CREATININE RATIO 21; CALCIUM 8.6 MG/DL (8.5-10.1); CARBON DIOXIDE 18 MMOL/L (21-32); CHLORIDE 104 MMOL/L (98-107); CREATININE SERUM 0.76 MG/DL (0.60-1.30); GFR ESTIMATED > 60; GLUCOSE 218 MG/DL (70-105); POTASSIUM 3.8 MMOL/L (3.6-5.0); SODIUM 134 MMOL/L (135-145); TOTAL PROTEIN 6.5 G/DL (6.4-8.2)
[2016-11-28 12:11] VITALS: BP 138/86
[2016-11-28] MEDS ORDERED: ATOR40TA PO (13:57)
[2016-11-28 14:35] VITALS: BP 138/86
--- NOTE | 2016-11-28 14:46 | ECHOCARDIOGRAPHY REPORT ---
PROCEDURE PHYSICIAN: JERSON LOPEZ DATE OF PROCEDURE: 11/27/2016 TWO DIMENSIONAL ECHOCARDIOGRAM REPORT PRIMARY PHYSICIAN: Dr. Jj OTHER PHYSICIAN: REFERRING PHYSICIAN: ORDERING PHYSICIAN: ATTENDING PHYSICIAN: Dr. Garrett Davison FAMILY PHYSICIAN: READING PHYSICIAN: INDICATION FOR THE PROCEDURE: Chest pain, coronary artery disease. MEASUREMENTS DERIVED VALUES LV DIAMETER (LAX) NORMALS NORMALS Diastolic (3.6-5.2) Eject. Fract. (60%+/-6%) Systolic (2.3-3.9) Diastolic Vol. % Shortening (0.22-0.42) Systolic Vol. Aortic Root IVS THICKNESS Diastolic (0.6-1.1) LVPW THICKNESS Diastolic (0.6-1.1) LA DIAMETER Systolic (2.1-3.7) FINDINGS: 1. Sinus rhythm. 2. Left atrial dimensions are mildly enlarged. the left atrial diameter is 4 cm. 3. Aortic root dimensions are normal. 4. Left ventricular systolic function is preserved. Left ventricular ejection fraction is 55%. Mild concentric LVH is present. Diastolic intraventricular septal diameter is 1.1 cm. 5. There is no wall motion abnormality. 6. Right heart dimensions are normal. 7. There is no evidence of pericardial effusion. 8. Mild diastolic dysfunction is present. 9. IVC is normal. VALVULAR STRUCTURE OF THE HEART: Mild tricuspid regurgitation with normal PA pressure. There is mild aortic sclerosis with no stenosis or regurgitation. There is no significant mitral valve pathology. The pulmonic valve is not well visualized. CONCLUSION: 1. LV RV size and function is normal. 2. LV EF is 55%. 3. No significant valvular heart disease. 4. Pulmonary hypertension. Normal PA pressure. Job ID: [id number] Dictated Date: 11/28/2016 13:16:00 Principal Software Architect Date: 11/28/2016 13:54:59 / [email or web address]
--- NOTE | 2016-11-28 14:52 | STRESS TEST ---
PROCEDURE PHYSICIAN: JERSON LOPEZ PHARMACOLOGIC NUCLEAR STRESS TEST REPORT DATE OF PROCEDURE: 11/28/2016 ATTENDING PHYSICIAN: Dr. Davison PRIMARY PHYSICIAN: Dr. Jj DIAGNOSIS: Chest pain limits, status post CABG, coronary artery disease. PROCEDURE: The patient was brought to stress lab after informed consent was taken. Lexiscan stress test was administered according to the protocol. Low grade exercise was performed with Lexiscan administration. 0.4 mg Lexiscan was given intravenously. Baseline electrocardiogram showed sinus rhythm. Heart rate was 98 bpm. Blood pressure was 132/91 mmHg. Maximum heart rate was 127 bpm and blood pressure was 147/89 mmHg. The patient did not complain of any chest pain during the stress test. The stress test was stopped secondary to completion of protocol. No ST changes were noted. There were no arrhythmias present. Radionuclide isotope was given at peak vasodilatation for stress images. 10.7 mCi of Myoview were given for rest images and 32 mCi of Myoview were given for stress images. Review of myocardial perfusion images shows normal perfusion. Gaited images shows an EF of 63% with normal wall motion. End-diastolic volume is 45 mL and end-systolic volume is 17 mL. TID is 1.0. CONCLUSION: 1. Pharmacologic stress test is negative for ischemia. 2. No perfusion abnormalities are noted. Job ID: [id number] Dictated Date: 11/28/2016 13:18:00 Licensed Insurance Agent Date: 11/28/2016 14:45:56 / francisco
--- NOTE | 2016-11-30 14:48 | Physician Query-Final Dx ---
COLLIN BOSWELL 11/30/16 1448: Final Diagnosis Give Final Diagnosis Please give Final Diagnosis DARIEL MENDOZA DO 12/01/16 1455: Final Diagnosis Give Final Diagnosis chest pain atypical COLLIN BOSWELL Nov 30, 2016 14:48 DARIEL MENDOZA DO Dec 01, 2016 14:55
== END 2016-11-28 13:36 | disposition home or self-care (01) ==
LOC: EDUNIT# 06:44 → ER 06:47 → UNDOADMOB 08:21 → ICU 08:21 → UNDODISOB 11-28 14:35
PROVIDERS: ADMIT Internal Medicine; ATTEND Internal Medicine
DX: R07.9 Chest pain, unspecified (principal); I25.10 Atherosclerotic heart disease of native coronary artery without angina pectoris; E11.9 Type 2 diabetes mellitus without complications; Z79.84 Long term (current) use of oral hypoglycemic drugs; E78.5 Hyperlipidemia, unspecified; I10 Essential (primary) hypertension; F41.9 Anxiety disorder, unspecified; R50.9 Fever, unspecified; R53.83 Other fatigue; F60.5 Obsessive-compulsive personality disorder; R45.4 Irritability and anger; Z91.19 Patient's noncompliance with other medical treatment and regimen; Z95.1 Presence of aortocoronary bypass graft
CPT/HCPCS: 36415; 71020; 78452; 80053; 80061; 82962; 83735; 83874; 84484; 85025; 85610; 85730; 86308; 87804; 93005; 93017; 93041; 93306; 96374; G0378

== ENCOUNTER → 2021-09-07 | Outpatient (CLI) | payer BC ==
[~2021-09-07] VITALS: Ht 175 cm; Wt 77.0 kg
[~2021-09-07] MED LIST changes: +ASPI325T32 PO; +ATOR40TA PO; +CATHETER FLUSH 10 ML SYR IV PRN; +CYAN10007; +ERGO50006; +METF-865; +REGADENOSON 0.4 MG/5 ML SYR (LEXISCAN) IV ONE; +VENL150C98 PO
[2021-09-07 09:14] VITALS: BP 139/83
--- NOTE | 2021-09-08 12:32 | NUCLEAR STRESS TEST ---
REGADENOSON NUCLEAR STRESS Date of procedure: 09/07/2021. Primary care provider: Karli Jj DO Admitting physician: Marcus Samuel Jr., MD. INDICATION: Coronary artery disease without angina. BASELINE ELECTROCARDIOGRAM: Sinus rhythm with right axis deviation and nonspecific intraventricular conduction delay and nonspecific inferior ST changes. STRESS TEST PROCEDURE: This was initially intended to be a treadmill nuclear stress test but the patient could not attain the target heart rate. The patient was subsequently administered 0.4 mg of intravenous Regadenoson. The resting heart rate was 84 bpm and the peak heart rate was 122 bpm. The resting blood pressure was 148/91 mmHg and the minimum blood pressure was 117/90 mmHg. This represents a normal heart rate and a normal blood pressure response to Regadenoson. The test was stopped due to the protocol. There was no chest discomfort during the test. The stress electrocardiogram was indeterminate due to the baseline abnormalities. NUCLEAR PROCEDURE: The patient was administered 10.7 mCi of intravenous technetium 99m Tetrofosmin at rest for the rest images. The patient was subsequently administered 30 mCi of intravenous technetium 99m Tetrofosmin at peak stress for the stress images. Following an appropriate wait after each injection, imaging was obtained. The images were subsequently processed and reformatted in the usual views. Gated imaging was obtained. The image quality was adequate but with some gastrointestinal and motion artifact. CT attenuation correction was used as a adjunct to standard imaging. Both the corrected and uncorrected images were reviewed for interpretation. NUCLEAR RESULTS: There was normal myocardial perfusion in all segments without evidence of infarction or ischemia. There was normal left ventricular chamber size with an end-diastolic volume of 58 mL and an end-systolic volume of 24 mL. There was no evidence of transient ischemic dilatation. The TID ratio was 1.02. There was normal wall motion in all segments with a calculated ejection fraction of 59%. IMPRESSION: 1. Normal heart rate and blood pressure response to regadenoson. 2. There was no chest discomfort or arrhythmias during the test. 3. The stress electrocardiogram was indeterminate due to the baseline abnormalities. 4. There was normal myocardial perfusion in all segments without evidence of infarction or ischemia. 5. There was normal wall motion in all segments with a calculated ejection fraction of 59%. Certain portions of this document may have been dictated utilizing voice recognition technology. Inherent to this technology, typographical and grammat ical errors may exist. As much as I am diligent to identify and correct these mistakes, some errors may remain in the document. MARCUS SAMUEL JR, MD Sep 08, 2021 12:32
== END ==
LOC: CARD 08:00
PROVIDERS: ATTEND Internal Medicine Cardiovascular Disease
DX: I25.10 Atherosclerotic heart disease of native coronary artery without angina pectoris (principal)
CPT/HCPCS: 78452; 93017; A9502

== ENCOUNTER → 2021-09-12 | Outpatient (CLI) | payer BC ==
[~2021-09-12] MED LIST changes: -CATHETER FLUSH 10 ML SYR IV PRN; -REGADENOSON 0.4 MG/5 ML SYR (LEXISCAN) IV ONE
== END ==
LOC: CARD 08:57
PROVIDERS: ATTEND Internal Medicine Cardiovascular Disease
DX: I51.7 Cardiomegaly (principal); I25.10 Atherosclerotic heart disease of native coronary artery without angina pectoris
CPT/HCPCS: 93306